=== PATIENT | female | born 1980 | race Caucasian/White ===

== ENCOUNTER 2023-01-27 13:29 | Emergency (ER) | payer OTHER, SELFPAY ==
--- NOTE | ~2023-01-27 | US_ITS ---
EXAMINATION: US RETROPERITONEAL LIMITED (RENAL ONLY) CLINICAL INFORMATION: Bilateral flank pain with history of stones. COMPARISON: CT abdomen pelvis 03/11/2015 TECHNIQUE: Ultrasound kidneys was performed FINDINGS: RIGHT KIDNEY: 10.5 x 4.4 x 5.4 cm (SAG x AP x TRV). The kidney is normal in size, contour, and echogenicity. Renal cortical thickness is normal. A lower pole 2 mm nonobstructing calculus is present. No calculi were seen on the right on the 03/11/2015 CT scan. There is a 2 cm upper pole benign simple cyst which needs no additional imaging or follow-up. No worrisome solid focal parenchymal lesions. No hydronephrosis. LEFT KIDNEY: 10.2 x 4.5 x 5.2 cm (SAG x AP x TRV). The kidney is normal in size, contour, and echogenicity. Renal cortical thickness is normal. 2 stones are seen with one in the upper pole measuring 3 mm and one in the interpolar region measuring 2 mm. At the time of the prior CT scan, an internally dwelling double-J stent was present on the left and there was a 4 mm sized nonobstructing calculus with a few other smaller punctate densities. No solid focal parenchymal lesions. No hydronephrosis. US/US renal BI IMPRESSION: Bilateral nonobstructing renal calculi.
[2023-01-27 14:10] VITALS: BP 138/92; PULSE 100; RESP 18; TEMP 36.7; O2SAT 99; BMI 26.6
--- NOTE | 2023-01-27 14:10 | ED.GENADULT ---
HPI - General Adult General Chief complaint: Abdominal Pain Stated complaint: Septic? Kidney stones/UTI Time Seen by Provider: 01/27/23 18:46 Source: patient Mode of arrival: ambulatory Limitations: no limitations History of Present Illness HPI narrative: 42yo female presenting for UTI symptoms that began 2 weeks ago. She was diagnosed with a UTI by her PCP, Dr. Wan in [facility] office, who determined it was an E.coli UTI. Patient has been taking nitrofurantoin for 5 days with no symptom improvement. Patient has history of nephrolithiasis. She endorses lower back and lower abdominal pain. She denies fever, chills, vomiting or diarrhea. She reports ongoing dysuria, urgency and frequency. Denies chance of . MD complaint: Abdominal pain Onset (ago): week(s) (2) Location: abdomen Radiation: back and flank Pain Consistency: constant Relieving factors: none Exacerbating factors: none Associated symptoms: denies other symptoms Treatments prior to arrival: other (Nitrofurantoin) Related Data Home Medications Medication Instructions Recorded Confirmed dextroamphetamine-amphetamine 20 1 tab PO 08/27/22 mg tablet fluoxetine 20 mg capsule 60 mg PO DAILY 08/27/22 Previous Rx's Medication Instructions Recorded uazowywohd-ckuaiwxisderr-nodsrtcm 1 cap PO Q4-6H PRN pain #14 caps 08/27/22 50 mg-300 mg-40 mg capsule (Fioricet) levofloxacin 500 mg tablet 500 mg PO DAILY #7 tabs 01/27/23 Allergies Allergy/AdvReac Type Severity Reaction Status Date / Time Penicillins [PCN] Allergy Severe HIVES,FACIAL Unverified 08/27/22 15:27 AND TONGUE SWELLING piperacillin [From ZOSYN] Allergy Severe ANGIOEDEMA Unverified 08/27/22 15:27 tazobactam [From ZOSYN] Allergy Severe ANGIOEDEMA Unverified 08/27/22 15:27 Review of Systems Review of Systems: Yes all other systems are reviewed and are negative PMFSH Social History Social History Advance Directives: No Advance Directives Information Provided: Yes Physical Exam ED Vital Signs: Vital Signs - 24 hr 01/27/23 14:10 Temperature 98.0 F Pulse Rate 100 Respiratory Rate 18 Blood Pressure 138/92 H Pulse Oximetry 99 Oxygen Delivery Method Room Air BMI result Body Mass Index 26.6 Appearance: Alert. Oriented X3. No acute distress. HEENT: normal inspection CVS: Normal heart rate and rhythm. Pulses normal. Respiratory: No respiratory distress. Lung CTAB Skin: Skin warm and dry. Normal skin color. Normal skin turgor. No rashes. Extremities: No lower extremity edema GI: lower abdominal and bilateral CVA tenderness Neuro: Oriented X 3. No motor deficit. No sensory deficit. Course Course Course Narrative: RME - 42yo female presenting for UTI symptoms that began2 weeks ago. She was diagnosed with a UTI by her PCP, Dr. Wan in [facility] office, who determined it was an E.coli UTI. Patient has been taking nitrofuritoin for 5 days with no symptom improvement. Patient has history of nephrolithiasis. She endorses back and abdominal pain. VSS in triage Plan: labs, UA, hold off CT to see if we can get recent records Medical Decision Making Medical Decision Making [facility] Narrative: 42yo female presenting for abdominal pain and UTI symptoms that began 2 weeks ago for which she has been treated by her PCP with nitrofurantoin for 5 days with no improvement. US showed bilateral non-obstructing renal stones. Labs showed no signs of systemic infection. UA showed RBC and WBCs significant for UTI. Patient was prescribed Levofloxacin and instructed to discontinue her nitrofurantoin. Patient was instructed to take her medication as instructed. Columba was told to follow up with her primary care doctor. Patient was instructed to return to the ER if she develops new or worsening symptoms. Differential Diagnosis Differential Diagnoses: The differential diagnosis associated with the presentation includes pyelonephritis, cystitis, nephrolithiasis, obstructing ureteral stone, hydronephrosis Lab Data [facility] Lab Attestation statement: I reviewed the patient's lab results. no leukocytosis 01/27/23 14:21 01/27/23 14:21 Labs: Lab Results 01/27/23 01/27/23 01/27/23 Range/Units 14:21 14:21 14:21 WBC 5.0 (4.8-10.8) X10*3/uL RBC 5.25 (4.20-5.50) X10*6/uL Hgb 15.6 (12.0-16.0) g/dl Hct 47.2 H (37.0-47.0) % MCV 89.9 (80.0-98.0) fL MCH 29.7 (27.0-33.0) pg MCHC 33.1 (31.0-35.0) g/dl RDW 12.5 (11.0-16.0) % Plt Count 402 H (160-400) X10*3/uL MPV 9.2 L (9.4-12.3) fL Immature Gran % (Auto) 0.2 (0.0-0.4) % Neut % (Auto) 59.6 (45-73) % Lymph % (Auto) 24.0 (20-40) % Ballard % (Auto) 14.0 H (2-11) % Eos % (Auto) 1.2 (0-4) % Baso % (Auto) 1.0 (0-2) % Lymph # (Auto) 1.2 (1.2-4.9) X10*3/uL Ballard # (Auto) 0.7 (0.1-1.2) X10*3/uL Eos # (Auto) 0.1 (0.0-0.4) X10*3/uL Baso # (Auto) 0.1 (0.0-0.2) X10*3/uL Abs Immat Gran (auto) 0.01 (0.00-0.03) X10*3/uL Absolute Neuts (auto) 3.0 (2.0-8.3) x10*3/uL Absolute Nucleated RBC 0.000 (0.0-0.012) X10*3/uL Nucleated RBC % (auto) 0.0 (0.0-0.2) /100WBC Sodium 140 (135-145) mmol/L Potassium 4.3 (3.3-5.1) mmol/L Chloride 107 (96-108) mmol/L Carbon Dioxide 26 (22-29) mmol/L Anion Gap 11 L (12-20) BUN 7 L (9-16) mg/dL Creatinine 0.78 (0.5-1.4) mg/dL Estim Creat Clear Calc 102.6 Estimated GFR > 60 Random Glucose 100 (60-115) mg/dL Lactic Acid 1.3 (0.5-2.0) mmol/L Calcium 9.7 (8.4-10.2) mg/dL Magnesium 2.0 (1.6-2.6) mg/dL Total Bilirubin 0.9 (0.0-1.0) mg/dL Direct Bilirubin 0.2 (0.0-0.5) mg/dL AST 12 (5-31) U/L ALT 10 (0-31) U/L Alkaline Phosphatase 79 (39-117) U/L Total Protein 7.2 (6.5-8.0) g/dL Albumin 4.7 (3.5-5.0) g/dL Lipase 43 (8-78) U/L Beta HCG, Quant mIU/mL Urine Color Urine Appearance Urine pH (5.0-9.0) Ur Specific [place] (1.005-1.025) Urine Protein (Neg-Trace) mg/dL Urine Glucose (UA) (Negative) mg/dL Urine Ketones (Negative) mg/dL Urine Blood (Negative) Urine Nitrite (Negative) Ur Leukocyte Esterase (Negative) Urine RBC (0-2) /HPF Urine WBC (0-5) /HPF Ur Squamous Epith Cells (0-2) /HPF Urine Bacteria (None Seen) Hyaline Casts (0-2) /LPF 01/27/23 01/27/23 Range/Units 14:21 16:00 WBC (4.8-10.8) X10*3/uL RBC (4.20-5.50) X10*6/uL Hgb (12.0-16.0) g/dl Hct (37.0-47.0) % MCV (80.0-98.0) fL MCH (27.0-33.0) pg MCHC (31.0-35.0) g/dl RDW (11.0-16.0) % Plt Count (160-400) X10*3/uL MPV (9.4-12.3) fL Immature Gran % (Auto) (0.0-0.4) % Neut % (Auto) (45-73) % Lymph % (Auto) (20-40) % Ballard % (Auto) (2-11) % Eos % (Auto) (0-4) % Baso % (Auto) (0-2) % Lymph # (Auto) (1.2-4.9) X10*3/uL Ballard # (Auto) (0.1-1.2) X10*3/uL Eos # (Auto) (0.0-0.4) X10*3/uL Baso # (Auto) (0.0-0.2) X10*3/uL Abs Immat Gran (auto) (0.00-0.03) X10*3/uL Absolute Neuts (auto) (2.0-8.3) x10*3/uL Absolute Nucleated RBC (0.0-0.012) X10*3/uL Nucleated RBC % (auto) (0.0-0.2) /100WBC Sodium (135-145) mmol/L Potassium (3.3-5.1) mmol/L Chloride (96-108) mmol/L Carbon Dioxide (22-29) mmol/L Anion Gap (12-20) BUN (9-16) mg/dL Creatinine (0.5-1.4) mg/dL Estim Creat Clear Calc Estimated GFR Random Glucose (60-115) mg/dL Lactic Acid (0.5-2.0) mmol/L Calcium (8.4-10.2) mg/dL Magnesium (1.6-2.6) mg/dL Total Bilirubin (0.0-1.0) mg/dL Direct Bilirubin (0.0-0.5) mg/dL AST (5-31) U/L ALT (0-31) U/L Alkaline Phosphatase (39-117) U/L Total Protein (6.5-8.0) g/dL Albumin (3.5-5.0) g/dL Lipase (8-78) U/L Beta HCG, Quant < 2 mIU/mL Urine Color Dark Yellow Urine Appearance Clear Urine pH 7.0 (5.0-9.0) Ur Specific [place] 1.015 (1.005-1.025) Urine Protein Negative (Neg-Trace) mg/dL Urine Glucose (UA) Negative (Negative) mg/dL Urine Ketones 15 (Negative) mg/dL Urine Blood Moderate (2+) H (Negative) Urine Nitrite Negative (Negative) Ur Leukocyte Esterase Trace H (Negative) Urine RBC 11-20 H (0-2) /HPF Urine WBC 0-5 (0-5) /HPF Ur Squamous Epith Cells 3-5 (0-2) /HPF Urine Bacteria None Seen (None Seen) Hyaline Casts 0-2 (0-2) /LPF Independent Interpretation I performed an independent interpretation of an: Ultrasound Interpretation: I have reviewed the ultrasound and agree with the radiologist's impression Radiology Impression Discussion of test interpretation with radiology: I have reviewed the radiologist's reading. Radiologist Impression: EXAMINATION: US RETROPERITONEAL LIMITED (RENAL ONLY) CLINICAL INFORMATION: Bilateral flank pain with history of stones. COMPARISON: CT abdomen pelvis 03/11/2015 TECHNIQUE: Ultrasound kidneys was performed FINDINGS: RIGHT KIDNEY: 10.5 x 4.4 x 5.4 cm (SAG x AP x TRV). The kidney is normal in size, contour, and echogenicity. Renal cortical thickness is normal. A lower pole 2 mm nonobstructing calculus is present. No calculi were seen on the right on the 03/11/2015 CT scan. There is a 2 cm upper pole benign simple cyst which needs no additional imaging or follow-up. No worrisome solid focal parenchymal lesions. No hydronephrosis. LEFT KIDNEY: 10.2 x 4.5 x 5.2 cm (SAG x AP x TRV). The kidney is normal in size, contour, and echogenicity. Renal cortical thickness is normal. 2 stones are seen with one in the upper pole measuring 3 mm and one in the interpolar region measuring 2 mm. At the time of the prior CT scan, an internally dwelling double-J stent was present on the left and there was a 4 mm sized nonobstructing calculus with a few other smaller punctate densities. No solid focal parenchymal lesions. No hydronephrosis. US/US renal BI IMPRESSION: Bilateral nonobstructing renal calculi. External Record Review External record reviewed: Office record, Outpatient record and Prior outpatient radiology reviewed outpatient CT and outpatient labs Prescription Management I considered prescription management with: Pain Medication and Antibiotic Critical Care Time Critical Care Time Critical Care Time: No Discharge Plan Discharge Clinical Impression: Acute UTI Patient Disposition: Home, Self-Care Additional Instructions: Your ultrasound showed bilateral non-obstructing kidney stones. your blood work showed no infection. Your urine showed moderate blood and WBCs. You have been prescribed Levofloxacin. Take the medication as instructed. Discontinue the Nitrofurantoin you were prescribed previously. Follow up with your primary care doctor. Return to the ER if you develop new or worsening symptoms. Prescriptions: New levofloxacin 500 mg tablet 500 mg PO DAILY Qty: 7 0RF No Action fluoxetine 20 mg capsule 60 mg PO DAILY dextroamphetamine-amphetamine 20 mg tablet 1 tab PO [id number] [Fioricet] 50-300-40 mg capsule 1 cap PO Q4-6H PRN (Reason: pain) Qty: 14 0RF Stand Alone Forms: Work/School Release Interventions: ED Discharge Assessment Last Done: 01/27/23 18:47 Discharge Date/Time: 01/27/23 19:07
[2023-01-27 14:38] LABS: MANUAL DIFF FLAG NO
[2023-01-27 14:41] LABS: Basophils Absolute Auto 0.1 X10*3/uL (0.0-0.2); Eosinophils Absolute Auto 0.1 X10*3/uL (0.0-0.4); Eosinophils Percent Auto 1.2 % (0-4); Hematocrit 47.2 % (37.0-47.0); Hemoglobin 15.6 g/dl (12.0-16.0); Imm Gran Abs Auto 0.01 X10*3/uL (0.00-0.03); Imm Gran Pct Auto 0.2 % (0.0-0.4); Lymphocytes Absolute Auto 1.2 X10*3/uL (1.2-4.9); Mean Corpuscular HGB Conc 33.1 g/dl (31.0-35.0); Mean Corpuscular Hemoglobin 29.7 pg (27.0-33.0); Mean Corpuscular Volume 89.9 fL (80.0-98.0); Mean Platelet Volume 9.2 fL (9.4-12.3); Monocytes Absolute Auto 0.7 X10*3/uL (0.1-1.2); Neutrophils Percent Auto 59.6 % (45-73); Platelet Count 402 X10*3/uL (160-400); Red Blood Count 5.25 X10*6/uL (4.20-5.50); Red Cell Distribution Width 12.5 % (11.0-16.0)
[2023-01-27 14:50] LABS: Lactic Acid 1.3 mmol/L (0.5-2.0)
[2023-01-27 14:54] LABS: Alanine Aminotransferase 10 U/L (0-31); Albumin Level 4.7 g/dL (3.5-5.0); Alkaline Phosphatase 79 U/L (39-117); Anion Gap 11 (12-20); Aspartate Amino Transferase 12 U/L (5-31); Bilirubin Direct 0.2 mg/dL (0.0-0.5); Bilirubin Total 0.9 mg/dL (0.0-1.0); Blood Urea Nitrogen 7 mg/dL (9-16); Calcium 9.7 mg/dL (8.4-10.2); Carbon Dioxide 26 mmol/L (22-29); Chloride 107 mmol/L (96-108); Creatinine Clr Calc Pharmacy 102.6; Estimated Glomerular Filt Rate > 60; Glucose Random 100 mg/dL (60-115); Lipase 43 U/L (8-78); Potassium 4.3 mmol/L (3.3-5.1); Sodium 140 mmol/L (135-145); Total Protein 7.2 g/dL (6.5-8.0)
[2023-01-27 15:06] LABS: HCG Quantitative < 2 mIU/mL
[2023-01-27 16:11] LABS: Appearance Urine Clear; Color Urine Dark Yellow; Glucose Urine UA Negative (Negative); Leukocyte Esterase Urine Trace (Negative); Nitrite Urine Negative (Negative); Specific Gravity - Urine 1.015 (1.005-1.025); UMIC TRIGGER UACC YES; Urine Blood Moderate (2+) (Negative); Urine Ketones 15 mg/dL (Negative); Urine Protein Negative (Neg-Trace)
[2023-01-27 16:23] LABS: Bacteria Urine None Seen (None Seen); Hyaline Casts Urine 0-2 /LPF (0-2); WBC Urine 0-5 /HPF (0-5)
--- NOTE | 2023-01-27 18:48 | PC.NURSE ---
EVAL AND DC BY PIT PA
== END 2023-01-27 19:07 | disposition home or self-care (01) ==
PROVIDERS: Physician Assistant; Emergency Provider Emergency Medicine; PCP Family Medicine
DX: N39.0 Urinary tract infection, site not specified (principal); N20.0 Calculus of kidney; R10.30 Lower abdominal pain, unspecified; Z79.899 Other long term (current) drug therapy
CPT/HCPCS: 36415; 76775; 80048; 80076; 81001; 83605; 83690; 83735; 84702; 85025; 87040; 99282; 99284